=== PATIENT | male | born 1985 | race Caucasian/White ===

== ENCOUNTER 2016-11-08 06:38 | Observation (INO) | payer OTHER ==
[2016-11-08] MEDS ORDERED: SODIUM CHLORIDE 0.9% 1,000 ML IV ONE (06:44)
--- NOTE | 2016-11-08 06:52 | ED ---
Altered Mental Status HPI - General Source: police, EMS Mode of arrival: EMS Limitations: no limitations <Branden Hensley - Last Filed: 11/08/16 07:17> <Austin Broussard - Last Filed: 11/08/16 10:38> - General Stated Complaint: Altered Mental Status - History of Present Illness Initial Comments: This is a 30-year-old male with a history of hypertension presents emergency department for mental status changes. Per EMS he was found by his girlfriend thrashing around in bed and not responding to them. The EMS stated that they were originally called for respiratory arrest however when they got there he was breathing fine however was just having mental status changes. They stated that he was thrashing around and was not aware of his surroundings. He was not communicative. He was just screaming and thrashing. He had been restrained in route. It was not until just before they arrived to the hospital that the patient stop thrashing and was communicating with them. The patient adamantly denies taking any drugs. States he does not drink. He states he is on indomethacin. He denies being sick recently. No fevers or chills. He currently states that the only thing that hurts her as risks for the handcuffs were. No other complaints. (Branden Hensley) - Related Data Allergies Allergy/AdvReac Type Severity Reaction Status Date / Time No Known Allergies Allergy Verified 11/08/16 06:45 Review of Systems ROS Other: All systems not noted in ROS Statement are negative. <Branden Hensley - Last Filed: 11/08/16 07:17> ROS Other: All systems not noted in ROS Statement are negative. <Austin Broussard - Last Filed: 11/08/16 10:38> ROS Statement: Those systems with pertinent positive or pertinent negative responses have been documented in the HPI. Past Medical History Past Medical History: Hypertension History of Any Multi-Drug Resistant Organisms: None Reported Past Surgical History: No Surgical Hx Reported Past Psychological History: No Psychological Hx Reported Smoking Status: Never smoker Past Alcohol Use History: None Reported Past Drug Use History: None Reported <Branden Hensley - Last Filed: 11/08/16 07:17> General Exam Limitations: no limitations <Branden Hensley - Last Filed: 11/08/16 07:17> <Austin Broussard - Last Filed: 11/08/16 10:38> - General Exam Comments Initial Comments: Constitutional: Awake alert Appears comfortable Head: Normocephalic atraumatic Eyes: no conjunctival injection No scleral icterus EOMI Neck: No JVD Supple Heart: Regular rate rhythm normal S1-S2 no murmurs Lungs: Clear to auscultation bilaterally No wheezing No rales Abdomen: Soft nondistended nontender Extremities: Non edematous DP pulses intact Radial pulses intact Neuro: A&Ox3 nerves II through XII are grossly intact, 5 out of 5 strength in upper and lower Chevys bilaterally, no ataxia with finger-nose and heel to araujo testing Psych: Appropriate mood and affect (Branden Hensley) Course <Branden Hensley - Last Filed: 11/08/16 07:17> <Austin Broussard - Last Filed: 11/08/16 10:38> Vital Signs 11/08/16 11/08/16 06:41 09:03 Temperature 94.5 F L 97.9 F Pulse Rate 93 75 Respiratory 22 18 Rate Blood Pressure 163/93 126/70 O2 Sat by Pulse 100 96 Oximetry - Reevaluation(s) Reevaluation #1: 11/08/16 06:52 EKG showing normal sinus rhythm with a rate of 82. No ST segment changes or T- wave inversions. QTC is 422. Other intervals are normal. No ectopy. (Branden Hensley) Reevaluation #2: 11/08/16 07:12 Patient's care transitioned to Dr. Broussard (Branden Hensley) Medical Decision Making <Branden Hensley - Last Filed: 11/08/16 07:17> - Lab Data Result diagrams: 11/08/16 06:50 11/08/16 06:50 <Austin Broussard - Last Filed: 11/08/16 10:38> - Medical Decision Making Reevaluation patient several occasions recently he'll he was awake alert and oriented. Did discuss findings with him and his family as well as Dr. Veloz the patient will be admitted with neurological consultation for new-onset seizure (Austin Broussard) - Lab Data Lab Results 11/08/16 11/08/16 11/08/16 Range/Units 06:50 06:50 06:50 WBC 6.3 (3.8-10.6) k/uL RBC 5.48 (4.30-5.90) m/uL Hgb 15.2 (13.0-17.5) gm/dL Hct 44.3 (39.0-53.0) % MCV 80.8 (80.0-100.0) fL MCH 27.7 (25.0-35.0) pg MCHC 34.3 (31.0-37.0) g/dL RDW 13.7 (11.5-15.5) % Plt Count 205 (150-450) k/uL Neutrophils % 41 % Lymphocytes % 43 % Monocytes % 7 % Eosinophils % 4 % Basophils % 1 % Neutrophils # 2.6 (1.3-7.7) k/uL Lymphocytes # 2.8 (1.0-4.8) k/uL Monocytes # 0.5 (0-1.0) k/uL Eosinophils # 0.3 (0-0.7) k/uL Basophils # 0.1 (0-0.2) k/uL Sodium 142 (137-145) mmol/L Potassium 4.1 (3.5-5.1) mmol/L Chloride 107 (98-107) mmol/L Carbon Dioxide 18 L (22-30) mmol/L Anion Gap 17 mmol/L BUN 15 (9-20) mg/dL Creatinine 1.10 (0.66-1.25) mg/dL Est GFR (MDRD) Af Amer >60 (>60 ml/min/1.73 sqM) Est GFR (MDRD) Non-Af >60 (>60 ml/min/1.73 sqM) Glucose 187 H (74-99) mg/dL Plasma Lactic Acid Sanjay (0.7-2.0) mmol/L Calcium 9.3 (8.4-10.2) mg/dL Magnesium 2.1 (1.6-2.3) mg/dL Total Bilirubin 1.9 H (0.2-1.3) mg/dL AST 24 (17-59) U/L ALT 46 (21-72) U/L Alkaline Phosphatase 66 (38-126) U/L CK-MB (CK-2) 2.3 (0.0-2.4) ng/mL Total Protein 7.4 (6.3-8.2) g/dL Albumin 4.5 (3.5-5.0) g/dL Salicylates <1.0 mg/dL Acetaminophen <10.0 ug/mL Serum Alcohol <10 mg/dL 11/08/16 Range/Units 06:50 WBC (3.8-10.6) k/uL RBC (4.30-5.90) m/uL Hgb (13.0-17.5) gm/dL Hct (39.0-53.0) % MCV (80.0-100.0) fL MCH (25.0-35.0) pg MCHC (31.0-37.0) g/dL RDW (11.5-15.5) % Plt Count (150-450) k/uL Neutrophils % % Lymphocytes % % Monocytes % % Eosinophils % % Basophils % % Neutrophils # (1.3-7.7) k/uL Lymphocytes # (1.0-4.8) k/uL Monocytes # (0-1.0) k/uL Eosinophils # (0-0.7) k/uL Basophils # (0-0.2) k/uL Sodium (137-145) mmol/L Potassium (3.5-5.1) mmol/L Chloride (98-107) mmol/L Carbon Dioxide (22-30) mmol/L Anion Gap mmol/L BUN (9-20) mg/dL Creatinine (0.66-1.25) mg/dL Est GFR (MDRD) Af Amer (>60 ml/min/1.73 sqM) Est GFR (MDRD) Non-Af (>60 ml/min/1.73 sqM) Glucose (74-99) mg/dL Plasma Lactic Acid Sanjay 5.8 H* (0.7-2.0) mmol/L Calcium (8.4-10.2) mg/dL Magnesium (1.6-2.3) mg/dL Total Bilirubin (0.2-1.3) mg/dL AST (17-59) U/L ALT (21-72) U/L Alkaline Phosphatase (38-126) U/L CK-MB (CK-2) (0.0-2.4) ng/mL Total Protein (6.3-8.2) g/dL Albumin (3.5-5.0) g/dL Salicylates mg/dL Acetaminophen ug/mL Serum Alcohol mg/dL Disposition <Branden Hensley - Last Filed: 11/08/16 07:17> <Austin Broussard - Last Filed: 11/08/16 10:38> Clinical Impression: Seizure disorder Disposition: ADMITTED IP TO THIS HOSP Condition: Stable
[2016-11-08 07:21] LABS: ALT 46 U/L (21-72); AST 24 U/L (17-59); Acetaminophen <10.0 ug/mL; Alcohol <10 mg/dL; Alkaline Phosphatase 66 U/L (38-126); Anion Gap 17 mmol/L; Blood Urea Nitrogen 15 mg/dL (9-20); Calcium 9.3 mg/dL (8.4-10.2); Carbon Dioxide 18 mmol/L (22-30); Chloride 107 mmol/L (98-107); Glucose 187 mg/dL (74-99); Magnesium 2.1 mg/dL (1.6-2.3); Non-African American GFR(MDRD) >60 (>60 ml/min/1.73 sqM); Potassium 4.1 mmol/L (3.5-5.1); Salicylate <1.0 mg/dL; Sodium 142 mmol/L (137-145); Total Bilirubin 1.9 mg/dL (0.2-1.3); Total Protein 7.4 g/dL (6.3-8.2)
[2016-11-08 07:31] LABS: Basophils # (A) 0.1 k/uL (0-0.2); Basophils % (A) 1 %; CH 28.4; CHCM 35.3; Eosinophils # (A) 0.3 k/uL (0-0.7); Eosinophils % (A) 4 %; HCT 44.3 % (39.0-53.0); HGB 15.2 gm/dL (13.0-17.5); Luc # (Auto) 0.21; Luc % (Auto) 3; Lymphocytes # (A) 2.8 k/uL (1.0-4.8); Lymphocytes % (A) 43 %; MCH 27.7 pg (25.0-35.0); MCHC 34.3 g/dL (31.0-37.0); MCV 80.8 fL (80.0-100.0); Mean Platelet Volume 7.8; Monocytes # (A) 0.5 k/uL (0-1.0); Monocytes % (A) 7 %; Neutrophils # (A) 2.6 k/uL (1.3-7.7); Neutrophils % (A) 41 %; RBC 5.48 m/uL (4.30-5.90); RDW 13.7 % (11.5-15.5); WBC 6.3 k/uL (3.8-10.6); WBC (Perox) 6.19
--- NOTE | 2016-11-08 08:20 | CT ---
EXAMINATION TYPE: CT brain wo con DATE OF EXAM: 11/08/2016 7:49 AM COMPARISON: 05/09/2016 HISTORY: 30-year-old male with altered mental status, confusion, possible seizure TECHNIQUE: Examination was done in axial plane without intravenous contrast. Coronal and sagittal reconstructio ns performed. CT DLP: 1121 mGycm Automated exposure control for dose reduction was used. FINDINGS: There is no evidence of acute intracranial hemorrhage, acute ischemic changes, mass, mass-effect, or extra-axial fluid collection. There is no effacement of cerebral sulci or basal subarachnoid cister ns. There is no hydrocephalus. There is no midline shift. Pride-white matter distinction is preserv ed. There is some lobulated mucosal thickening along the posterior right maxillary sinus, partially visua lized, possibly air-fluid level. Mastoid air cells well pneumatized. Visualized orbits and globes are within normal limits. IMPRESSION: No acute intracranial abnormality seen. Possible acute right maxillary sinusitis. Correlate for any f ocal symptoms.
--- NOTE | 2016-11-08 08:21 | XR ---
EXAMINATION TYPE: XR chest 2V DATE OF EXAM: 11/08/2016 8:01 AM COMPARISON: None HISTORY: 30-year-old male altered mental status, confusion, possible seizure, pain TECHNIQUE: Frontal and lateral views FINDINGS: The cardiomediastinal silhouette, aorta, and pulmonary vasculature are within normal limits. Lungs an d pleural spaces are clear. IMPRESSION: No acute cardiopulmonary process.
[2016-11-08] MEDS ORDERED: SODIUM CHLORIDE 0.9% 500 ML IV ONE (08:53)
[2016-11-08] MEDS ORDERED: SODIUM CHLORIDE 0.9% 2,000 ML IV ONE (08:53)
[2016-11-08] MEDS ORDERED: NALOXONE 0.4 MG/ML 1 ML VIAL IV PRN (10:39)
[2016-11-08] MEDS: SODIUM CHLORIDE 0.9% 1,000 ML IV SCH ×2 (12:23→20:07)
[2016-11-08 12:46] VITALS: RESP 16
[2016-11-08 13:34] LABS: Appearance,Urine Clear (Clear); Bilirubin,Urine Negative (Negative); Glucose,Urine (UA) Negative (Negative); Ketones,Urine Negative (Negative); Leukocyte Esterase,Urine Negative (Negative); Nitrite,Urine Negative (Negative); Protein,Urine Negative (Negative); Specific Gravity,Urine 1.004 (1.001-1.035); UA Billing (MACRO vs. MICRO) CHEM; Urobilinogen,Urine <2.0 mg/dL (<2.0)
[2016-11-08 17:26] LABS: Glucose,Whole Blood 96 mg/dL (75-99)
[2016-11-08] MEDS: ACETAMINOPHEN TAB 500 MG TAB PO PRN (20:06)
[2016-11-08] MEDS ORDERED: LISINOPRIL 10 MG TAB PO SCH (21:00)
[2016-11-08] MEDS: levETIRAcetam 500 MG TAB PO SCH (22:31)
[2016-11-09] MEDS: levETIRAcetam 500 MG TAB PO SCH (07:37)
[2016-11-09] MEDS: SODIUM CHLORIDE 0.9% 1,000 ML IV SCH ×2 (07:38→12:03)
[2016-11-09] MEDS: ACETAMINOPHEN TAB 500 MG TAB PO PRN (07:54)
[2016-11-09 08:05] VITALS: BP 121/77; PULSE 64; TEMP 97.5
--- NOTE | 2016-11-09 08:30 | P.HPIM ---
History of Present Illness H&P Date: 11/08/16 (Patient evaluated at 16:00) Chief Complaint: Altered mental status Patient is a 30-year-old male, patient of Dr. Heart in the outpatient setting medical history significant for GERD, hypertension, possible obstructive sleep apnea, and previous syncopal episode in the past. Patient presented to the emergency department by EMS after he was found in bed by his girlfriend thrashing around and not responding. When EMS arrived to the patient 's residence, he was thrashing around and being noncommunicative. No history of recent illness, fevers, chills, nausea, vomiting, shortness of breath, chest pain, abdominal pain. No history of diarrhea or constipation. Patient's only medication is lisinopril and omeprazole seen. No history of drugs or alcohol abuse. Vitals on arrival temperature 94.5, heart rate 93, respiratory rate 22, blood pressure 163/93, oxygen saturation 100% on room air. Admission labs WBC 6.3, hemoglobin 15.2, carbon dioxide 18, glucose 187, plasma lactic acid venous 5.8, total bilirubin 1.9. Urine and drug screen negative. CAT scan of the brain in the emergency department showed no acute intracranial abnormality; possible acute right maxillary sinusitis. Chest x-ray with no evidence of acute cardiopulmonary process. In the emergency department, patient was given 3500 mL of normal saline and admitted to the medical floor with neurology consult. Upon examination, patient states he doesn't remember anything until waking up in the emergency department with 7 or 8 people standing around him. Patient complains of slight nasal congestion and slightly difficulty breathing through his nose as he states it was broken in the past. Patient has no other complaints. Past Medical History Past Medical History: GERD/Reflux, Hypertension, Syncope Additional Past Medical History / Comment(s): Pt being worked up for YOLANDA, pt states about 2000 he was admitted to [facility] in [place] and was told he may have had a IL or a seizure, he had had a syncopal event and pt states since this time period his memory has been affected-forgetful at times. History of Any Multi-Drug Resistant Organisms: None Reported Past Surgical History: No Surgical Hx Reported Additional Past Anesthesia/Blood Transfusion Reaction / Comment(s): Pt has never had anesthesia. Past Psychological History: No Psychological Hx Reported Additional Psychological History / Comment(s): Pt resides with his fiancee. He is independent. Smoking Status: Never smoker Past Alcohol Use History: None Reported Past Drug Use History: None Reported - Past Family History Mother Family Medical History: Coronary Artery Disease (CAD) Additional Family Medical History / Comment(s): Mother has heart problems. Maternal grandmother had a IL at the age of 52 yrs and had a heart transplant. Father Additional Family Medical History / Comment(s): Father is obese. Medications and Allergies Home Medications Medication Instructions Recorded Confirmed Type Calcium Carbonate [Tums] 1,000 mg PO Q2H PRN 11/08/16 11/08/16 History Indomethacin [Indocin] 50 mg PO TID 11/08/16 11/08/16 History Lisinopril [Zestril] 10 mg PO HS 11/08/16 11/08/16 History Omeprazole 20 mg PO DAILY PRN 11/08/16 11/08/16 History Allergies Allergy/AdvReac Type Severity Reaction Status Date / Time No Known Allergies Allergy Verified 11/08/16 06:45 Physical Exam Vitals: Vital Signs Temp Pulse Pulse Resp BP BP Pulse Ox 11/09/16 07:00 97.5 F L 64 16 121/77 97 11/08/16 23:00 97.6 F 73 16 134/79 97 11/08/16 15:40 16 11/08/16 15:00 97.8 F 83 16 136/71 98 11/08/16 12:41 98.8 F 81 16 145/64 97 11/08/16 10:46 82 18 136/82 98 Intake and Output 11/08/16 11/09/16 11/09/16 22:59 06:59 14:59 Intake Total 1000 1200 Balance 1000 1200 Intake: IV 1000 1200 Sodium Chloride 0.9% 1, 1000 1200 000 ml @ 125 mls/hr IV . Q8H ALHAJI Rx#:[id number] Other: # Voids 3 GENERAL: Pt awake and alert, well-appearing, well-nourished, and in no acute distress. HEAD: Atraumatic, normocephalic. EYES: Pupils equal, round, and reactive to light, extraocular movements intact, sclera anicteric, conjunctiva are normal. ENT: Oropharynx clear without exudates. Moist mucous membranes. Tongue smooth, pink, no lesions, protrudes in midline. NECK:Normal range of motion, supple without lymphadenopathy or JVD. LUNGS: Breath sounds clear to auscultation bilaterally. No wheezes, rales, or rhonchi. HEART: Heart S1, S2, no S3 or S4. Regular rate and rhythm. No murmurs, rubs or gallops. ABDOMEN: Soft, obese, nontender, nondistended, normoactive bowel sounds. No guarding, no rebound. No masses or organomegaly appreciated. EXTREMITIES: 2+ peripheral pulses. No edema. No calf tenderness. NEUROLOGICAL: Pt oriented x 3. Cranial nerves II through XII grossly intact. Strength and sensation grossly intact. PSYCH: Normal mood, normal affect. SKIN: Warm, dry, intact. Normal turgor. No rashes or lesions. Results CBC & Chem 7: 11/08/16 06:50 11/09/16 07:34 Chest x-ray: report reviewed CT Scan - head: report reviewed Thrombosis Risk Factor Assmnt - DVT/VTE Prophylaxis DVT/VTE Prophylaxis: Low risk, early ambulation encouraged - Choose All That Apply Any of the Below Risk Factors Present?: Yes Each Factor Represents 1 point: Obesity (BMI >25) Other Risk Factors: No Other congenital or acquired thrombophilia - If yes, enter type in comment: No Thrombosis Risk Factor Assessment Total Risk Factor Score: 1 Thrombosis Risk Factor Assessment Level: Low Risk Assessment and Plan Plan: Impression and plan: 1. Acute altered mental status suspect secondary to new onset seizure. Neurology consult in place, recommendations pending. Maintain seizure precautions and fall precautions. Continue neurological assessments per protocol. 2. Elevated plasma lactic acid venous, present on admission, resolved. 3. Increased random blood sugar, present on admission. Will check hemoglobin A1c. 4. History of GERD. Continue Pepcid. 5. Hypertension. Continue lisinopril. 6. Suspected obstructive sleep apnea, patient is currently being worked up in the outpatient setting. 7. Previous history of syncope. 8. GI prophylaxis. Continue Pepcid. 9. DVT prophylaxis. Encourage early ambulation. The above impression and plan have been discussed and directed by Dr. Gottlieb. Babak KAPOOR acting as scribe for Dr. Gottlieb.
[2016-11-09 09:37] LABS: Hemoglobin A1C 4.8 % (4.2-6.1)
--- NOTE | 2016-11-09 09:44 | CONS ---
DATE OF CONSULTATION: 11/08/2016 CHIEF COMPLAINT: New onset seizure. HISTORY OF PRESENT ILLNESS: The patient is a pleasant 30-year-old male who is being evaluated today on 11/08/16 by the neurology service per the request of Dr. Gottlieb for seizures. The patient has no previous history of seizures and was brought into [facility] Emergency Room by EMS after he had quite a prolonged episode of generalized tonic-clonic seizure at approximately 6 a.m. this morning. The patient's significant other noticed that he was flailing his arms with his head turned to the left side. She did call EMS and the patient continued to seize for the next 30 minutes approximately. The patient does not recall the event and the next thing he remembers is being in the emergency room. He is complaining of joint tenderness, muscle soreness, and pain in his tongue. The patient did lacerate his tongue during the seizure. He did not have any sphincter incontinence. The patient denies having any previous history of seizures. He is being worked up for sleep disorder and he was actually scheduled for a polysomnography test this evening but this has been rescheduled. At the time of my evaluation, he is lying in his bed and appears to be in no acute distress. He has not had any recurrence at this time of any seizure-like activities. PAST MEDICAL HISTORY: Hypertension, gastroesophageal reflux disease, possible sleep disorder. SOCIAL HISTORY: He denied any tobacco, alcohol or drug use. PAST SURGICAL HISTORY: None. FAMILY HISTORY: Negative for any seizures and overall noncontributory. HOME MEDICATIONS: Reviewed in the chart. ALLERGIES: No known drug allergies. REVIEW OF SYSTEMS: CONSTITUTIONAL: As mentioned above. EYES: Negative. ENT: Negative. CARDIOVASCULAR: Negative. RESPIRATORY: Negative. NEUROLOGICAL: As mentioned above. GASTROINTESTINAL: Positive for occasional heartburn. GENITOURINARY: Negative. PSYCHIATRIC: Negative. ENDOCRINE: Negative. DERMATOLOGICAL: Negative. MUSCULOSKELETAL: As mentioned above. INVESTIGATION: A CT scan of the brain was done, which showed no acute intracranial abnormalities. There was evidence of right maxillary sinusitis. His chest x-ray was normal. His CBC, urinalysis and urine drug screens were normal. His comprehensive metabolic profile showed hyperglycemia at 187 and elevated bilirubin at 1.9. His lactic acid level was elevated at 5.8. PHYSICAL EXAM: Vital signs show a temperature of 97.8, pulse 83, respirations 16, blood pressure 136/71. GENERAL APPEARANCE: The patient is a well-developed male who appears to be in no acute distress. HEENT: Normocephalic, atraumatic, no facial asymmetry is seen. Extraocular muscles are intact. Laceration on the tongue is seen on the right side. Neck is supple with no masses felt. CARDIOVASCULAR: Regular rate and rhythm. ABDOMEN: Nontender, nondistended. Extremities showed no edema or clubbing. NEUROLOGICAL EXAM: The patient is alert, aware, and oriented x3. Speech and language are normal. Strength is full in all 4 extremities. Sensory exam was normal to light touch in all 4 extremities. No tremors or seizure-like activity is seen. No facial asymmetry is noticed on cranial nerve testing. IMPRESSION: 1. Prolonged generalized tonic-clonic seizure, new onset. 2. Hypertension. 3. Gastroesophageal reflux disease. 4. Sleep disorder. RECOMMENDATIONS: The patient did have a prolonged generalized tonic-clonic seizure, which was witnessed by the family and by EMS. The seizure lasted approximately 30 minutes which is quite concerning. Due to the length of the seizure, I do recommend starting antiepileptic medications. I will start him on Keppra 500 mg b.i.d. Possible side effects were discussed with the patient. An EEG has been ordered. Continue seizure precautions and neuro checks. The patient was told that he is not to drive or operate any heavy machinery for a period of 6 months. As for his possible sleep disorder, his polysomnography test has been rescheduled. The patient will be seen in the outpatient clinic after his discharge. Continue the rest of your current workup and management. I will continue to follow with you. Further recommendations to follow. Thank you, Dr. Gottlieb for allowing me to participate in the care of your patient. If you have any questions, please feel free to contact me.
--- NOTE | 2016-11-09 14:27 | P.DS ---
Providers Date of admission: 11/08/16 10:39 Expected date of discharge: 11/09/16 Attending physician: Wiliam Gottlieb Consults: Dr. Ge, neurology service Primary care physician: [facility] Course: Patient is a 30-year-old male, patient of Dr. Heart in the outpatient setting medical history significant for GERD, hypertension, possible obstructive sleep apnea with testing pending, and previous syncopal episode in the past. Patient presented to the emergency department by EMS after he he had a prolonged episode of generalized tonic-clonic seizure lasting approximately 30 minutes. No prior history of seizure activity. Urine and drug screen negative. CAT scan of the brain in the emergency department showed no acute intracranial abnormality; possible acute right maxillary sinusitis. Patient was evaluated by Dr. Ge from neurology service and was started on antiepileptic medication in the form of Keppra 500 mg by mouth twice a day. Patient also had an EEG during his hospitalization, results pending. Patient had no further seizures during his hospital stay and was deemed stable for discharge to home with follow-up in the outpatient setting. Patient instructed not to drive or operate any heavy machinery for 6 months. Discharge diagnoses: 1. Prolonged generalized tonic-clonic seizure, new onset. 2. GERD. 3. Hypertension. 4. Suspected obstructive sleep apnea. 5. Previous history of syncope. The above impression and plan have been discussed and directed by Dr. Gottlieb. Babak KAPOOR acting as scribe for Dr. Gottlieb. Pertinent Studies: Brain CT; chest x-ray, EEG Patient Condition at Discharge: Stable Plan - Discharge Summary New Discharge Prescriptions: Omeprazole 20 mg PO DAILY PRN #30 capsule.[address] COELHO Reason: Heartburn levETIRAcetam [Keppra] 500 mg PO Q12HR #60 tab Discharge Medication List Calcium Carbonate [Tums] 1,000 mg PO Q2H PRN 11/08/16 [History] Indomethacin [Indocin] 50 mg PO TID 11/08/16 [History] Lisinopril [Zestril] 10 mg PO HS 11/08/16 [History] Omeprazole 20 mg PO DAILY PRN #30 capsule. 11/09/16 [Rx] levETIRAcetam [Keppra] 500 mg PO Q12HR #60 tab 11/09/16 [Rx] Follow up Appointment(s)/Referral(s): Rocky Ge MD [STAFF PHYSICIAN] - 1 Week Wiliam Gottlieb Jr, DO [Primary Care Provider] - 1 Week Patient Instructions/Handouts: New-Onset Seizure in Adults (DC) Activity/Diet/Wound Care/Special Instructions: Do not drive or operate any heavy machinery for a period of 6 months. Follow- up with polysomnography test as previous scheduled. Discharge Disposition: HOME SELF-CARE Pending Studies Pending Results: EEG results
--- NOTE | 2016-11-09 22:14 | EEG ---
DATE OF SERVICE: 11/09/2016 REASON FOR TESTING: Seizure. CURRENT ANTIEPILEPTIC MEDICATIONS: Keppra. DESCRIPTION OF THE PROCEDURE: This EEG was performed using a 21-channel digital electroencephalograph, following international 10-20 system. DESCRIPTION OF THE RECORDING: From the beginning of the tracing, and with the patient's eyes closed, the background rhythm was mostly consisting of 9 Hz alpha frequency in the posterior occipital leads. No obvious asymmetry is seen. Frequent movement artifacts and lead artifacts are noticed. Photic stimulation was performed with a good driving response seen. No pathological waves were elicited. Hyperventilation was performed with no build-up of amplitude seen. Again, no pathological waves were elicited. Later in the tracing, the patient does reach stage II of sleep and occasional sleep spindles and K complexes are seen. No epileptiform discharges were noticed. His EKG lead showed a regular rate and rhythm. INTERPRETATION: This asleep and awake EEG can be considered within normal limits. There was no asymmetry seen. No epileptiform discharges were noticed. The absence of epileptiform discharges does not rule out the diagnosis of epilepsy; therefore clinical correlation is recommended.
== END 2016-11-09 15:10 | disposition home or self-care (01) ==
LOC: EC 06:38 → 3OBS 10:39 → 5MS5E 12:57
PROVIDERS: ADMIT Family Medicine; ATTEND Family Medicine
DX: G40.409 Other generalized epilepsy and epileptic syndromes, not intractable, without status epilepticus (principal); K21.9 Gastro-esophageal reflux disease without esophagitis; I10 Essential (primary) hypertension; G47.9 Sleep disorder, unspecified; S01.512A Laceration without foreign body of oral cavity, initial encounter; Z79.899 Other long term (current) drug therapy; X58.XXXA Exposure to other specified factors, initial encounter; Y93.89 Activity, other specified; Y92.013 Bedroom of single-family (private) house as the place of occurrence of the external cause; Z82.49 Family history of ischemic heart disease and other diseases of the circulatory system
CPT/HCPCS: 36415; 95819; 93005; 84145; 80053; 83036; 82553; 83605; 83735; 82947; 85025; 81003; 80306; 83520 ×2; 80320; 71020; 70450; 99285; 96360; 96361 ×4; G0378 ×3

== ENCOUNTER 2017-02-22 21:47 | Emergency (ER) | payer OTHER ==
[2017-02-22 22:01] VITALS: RESP 18
[2017-02-22] MEDS ORDERED: TOPIRAMATE 25 MG TAB PO SCH (22:30)
[2017-02-22 23:07] LABS: Anion Gap 13 mmol/L; Blood Urea Nitrogen 19 mg/dL (9-20); Calcium 9.4 mg/dL (8.4-10.2); Carbon Dioxide 20 mmol/L (22-30); Chloride 110 mmol/L (98-107); Glucose 118 mg/dL (74-99); Non-African American GFR(MDRD) >60 (>60 ml/min/1.73 sqM); Sodium 143 mmol/L (137-145)
--- NOTE | 2017-02-22 23:44 | ED ---
Seizure HPI - General Chief Complaint: Seizure Stated Complaint: Seizure Time Seen by Provider: 02/22/17 22:15 Source: family Mode of arrival: wheelchair Limitations: no limitations - History of Present Illness Initial Comments: Patient complains of seizure disorder. He states that he normally takes his seizure medication in the evening, however recently he has been having seizures in the evening before taking his medication. He has no fever, chills, chest pain or shortness of breath. He has no nausea or vomiting. He has no weakness or trouble walking. He has not changed his medication. He has no neck pain or stiffness. He has no fever or chills. He has no sick contacts. - Related Data Home Medications Medication Instructions Recorded Confirmed Calcium Carbonate [Tums] 1,000 mg PO Q2H PRN 11/08/16 02/22/17 Lisinopril [Zestril] 10 mg PO HS 11/08/16 02/22/17 Acetaminophen [Tylenol] 325 mg PO Q4H PRN 02/22/17 02/22/17 Omeprazole [PriLOSEC] 10 mg PO DAILY 02/22/17 02/22/17 Topiramate [Topamax] 100 mg PO DAILY 02/22/17 02/22/17 Allergies Allergy/AdvReac Type Severity Reaction Status Date / Time No Known Allergies Allergy Verified 02/22/17 22:51 Review of Systems ROS Statement: Those systems with pertinent positive or pertinent negative responses have been documented in the HPI. ROS Other: All systems not noted in ROS Statement are negative. Past Medical History Past Medical History: GERD/Reflux, Hypertension, Syncope Additional Past Medical History / Comment(s): Pt being worked up for YOLANDA, pt states about 2000 he was admitted to [facility] in [place] and was told he may have had a [place] or a seizure, he had had a syncopal event and pt states since this time period his memory has been affected-forgetful at times. History of Any Multi-Drug Resistant Organisms: None Reported Past Surgical History: No Surgical Hx Reported Additional Past Anesthesia/Blood Transfusion Reaction / Comment(s): Pt has never had anesthesia. Past Psychological History: No Psychological Hx Reported Additional Psychological History / Comment(s): Pt resides with his fiancee. He is independent. Smoking Status: Never smoker Past Alcohol Use History: None Reported Past Drug Use History: None Reported - Past Family History Mother Family Medical History: Coronary Artery Disease (CAD) Additional Family Medical History / Comment(s): Mother has heart problems. Maternal grandmother had a [place] at the age of 52 yrs and had a heart transplant. Father Additional Family Medical History / Comment(s): Father is obese. General Exam Limitations: no limitations General appearance: alert, in no apparent distress Head exam: Present: atraumatic, normocephalic, normal inspection Eye exam: Present: normal appearance, PERRL, EOMI. Absent: scleral icterus, conjunctival injection, periorbital swelling ENT exam: Present: normal exam, mucous membranes moist Neck exam: Present: normal inspection. Absent: tenderness, meningismus, lymphadenopathy Respiratory exam: Present: normal lung sounds bilaterally. Absent: respiratory distress, wheezes, rales, rhonchi, stridor Cardiovascular Exam: Present: regular rate, normal rhythm, normal heart sounds. Absent: systolic murmur, diastolic murmur, rubs, gallop, clicks GI/Abdominal exam: Present: soft, normal bowel sounds. Absent: distended, tenderness, guarding, rebound, rigid Extremities exam: Present: normal inspection, full ROM, normal capillary refill. Absent: tenderness, pedal edema, joint swelling, calf tenderness Back exam: Present: normal inspection Neurological exam: Present: alert, oriented X3, CN II-XII intact Psychiatric exam: Present: normal affect, normal mood Skin exam: Present: warm, dry, intact, normal color. Absent: rash Course Vital Signs 02/22/17 21:58 Temperature 96.8 F L Pulse Rate 71 Respiratory 18 Rate Blood Pressure 127/75 O2 Sat by Pulse 97 Oximetry Medical Decision Making - Medical Decision Making Patient complains of seizures. His electrolytes are within acceptable limits. Patient takes his seizure medication in the evening, and based on this fact it appears that his medication level is simply dropping too low before he is able to take the next dose. Therefore he will likely need an increase in his seizure medication. I discussed this with the patient. I gave him an extra doses medication here in the emergency department. Patient has remained seizure -free. He is stable for discharge at this time. - Lab Data Result diagrams: 02/22/17 22:45 Lab Results 02/22/17 Range/Units 22:45 Sodium 143 (137-145) mmol/L Potassium 4.0 (3.5-5.1) mmol/L Chloride 110 H (98-107) mmol/L Carbon Dioxide 20 L (22-30) mmol/L Anion Gap 13 mmol/L BUN 19 (9-20) mg/dL Creatinine 1.00 (0.66-1.25) mg/dL Est GFR (MDRD) Af Amer >60 (>60 ml/min/1.73 sqM) Est GFR (MDRD) Non-Af >60 (>60 ml/min/1.73 sqM) Glucose 118 H (74-99) mg/dL Calcium 9.4 (8.4-10.2) mg/dL Disposition Clinical Impression: Generalized seizure Disposition: HOME SELF-CARE Condition: Good Instructions: Recurrent Seizures in Adults (ED) Time of Disposition: 23:44
[2017-02-23 00:04] VITALS: BP 128/59; PULSE 67; TEMP 98
== END 2017-02-23 00:04 | disposition home or self-care (01) ==
LOC: EC 21:47
DX: G40.109 Localization-related (focal) (partial) symptomatic epilepsy and epileptic syndromes with simple partial seizures, not intractable, without status epilepticus (principal); I10 Essential (primary) hypertension; K21.9 Gastro-esophageal reflux disease without esophagitis; Z79.899 Other long term (current) drug therapy
CPT/HCPCS: 36415; 80048; 99284

== ENCOUNTER → 2019-06-04 | Outpatient (CLI) | payer BC ==
[2019-06-04 14:24] LABS: Anisocytosis Slight; Basophils # (A) 0.1 k/uL (0-0.2); Basophils % (A) 1 %; Eosinophils # (A) 0.3 k/uL (0-0.7); Eosinophils % (A) 5 %; HCT 45.7 % (39.0-53.0); HGB 15.3 gm/dL (13.0-17.5); Lymphocytes # (A) 1.9 k/uL (1.0-4.8); Lymphocytes % (A) 30 %; MCHC 33.6 g/dL (31.0-37.0); MCV 83.5 fL (80.0-100.0); Mean Platelet Volume 7.4; Monocytes # (A) 0.4 k/uL (0-1.0); Monocytes % (A) 6 %; Neutrophils # (A) 3.4 k/uL (1.3-7.7); Neutrophils % (A) 54 %; Platelet Count 182 k/uL (150-450); RBC 5.47 m/uL (4.30-5.90); RDW 16.7 % (11.5-15.5); WBC 6.3 k/uL (3.8-10.6)
[2019-06-04 20:19] LABS: African American GFR (CKD) 103.1 (60.0-200.0); Albumin 4.7 g/dL (3.80-4.90); Albumin/Globulin Ratio 2.35 (1.60-3.17); Anion Gap 9.1 mmol/L (4.00-12.00); BUN/Creat Ratio 15.45 Ratio (12.00-20.00); Calcium 9.5 mg/dL (8.7-10.3); Carbon Dioxide 23.9 mmol/L (21.6-31.8); Chol/HDL Ratio 5.23; LDL Cholesterol,Calculated 136.6 mg/dL (0.0-131.0); Potassium 4.5 mmol/L (3.5-5.5); Total Bilirubin 1.5 mg/dL (0.2-1.2); Total Protein 6.7 g/dL (6.2-8.2); VLDL Calculation 49.4 mg/dL (5.00-40.00)
[2019-06-04 20:27] LABS: T4, Free (Free Thyroxine) 1.1 ng/dL (0.80-1.80)
== END | disposition home or self-care (01) ==
LOC: LABWHC1 13:31
PROVIDERS: ATTEND Family Medicine
DX: Z00.00 Encounter for general adult medical examination without abnormal findings (principal); I10 Essential (primary) hypertension; E78.2 Mixed hyperlipidemia; K21.9 Gastro-esophageal reflux disease without esophagitis
CPT/HCPCS: 36415; 80053; 80061; 84439; 84443; 85025; 86677

== ENCOUNTER 2021-10-01 06:43 | Emergency (ER) | payer BC, OTHER ==
[2021-10-01 07:02] VITALS: BP 134/85; PULSE 77; RESP 18; TEMP 98.5
[2021-10-01] MEDS ORDERED: KETOROLAC 15 MG/ML 1 ML VIAL IM STA (08:11)
--- NOTE | 2021-10-01 08:14 | XR ---
EXAMINATION TYPE: XR knee complete RT DATE OF EXAM: 10/01/2021 CLINICAL HISTORY: Twisting injury with pain TECHNIQUE: Three views of the right knee are obtained. COMPARISON: None. FINDINGS: There is no acute fracture/dislocation evident in right knee. The tri-compartment joint s paces appear within normal limits. The overlying soft tissue appears unremarkable. A fabella is inci dentally noted. IMPRESSION: There is no acute fracture or dislocation in the right knee.
--- NOTE | 2021-10-01 08:19 | ED ---
General Adult HPI - General Chief complaint: Extremity Problem,Nontraumatic Stated complaint: Right leg pain Time Seen by Provider: 10/01/21 07:47 Source: patient, RN notes reviewed, old records reviewed Mode of arrival: ambulatory Limitations: no limitations - History of Present Illness Initial comments: 35 with right knee pain. Patient states that he did not have specific injury but may have had minor twist with a resulting pop which occurred yesterday. He's had no fever or chills. He has had pain with standing and with range of motion. Denies any other injury. - Related Data Home Medications Medication Instructions Recorded Confirmed Calcium Carbonate [Tums] 1,000 mg PO Q2H PRN 11/08/16 02/22/17 lisinopriL [Zestril] 10 mg PO HS 11/08/16 02/22/17 Acetaminophen [Tylenol] 325 mg PO Q4H PRN 02/22/17 02/22/17 Omeprazole [PriLOSEC] 10 mg PO DAILY 02/22/17 02/22/17 Topiramate [Topamax] 100 mg PO DAILY 02/22/17 02/22/17 Previous Rx's Medication Instructions Recorded Ibuprofen [Motrin] 600 mg PO Q8HR PRN #24 tab 10/01/21 Allergies Allergy/AdvReac Type Severity Reaction Status Date / Time No Known Allergies Allergy Verified 10/01/21 07:02 Review of Systems ROS Statement: Those systems with pertinent positive or pertinent negative responses have been documented in the HPI. ROS Other: All systems not noted in ROS Statement are negative. Past Medical History Past Medical History: GERD/Reflux, Hypertension, Syncope Additional Past Medical History / Comment(s): Pt being worked up for YOLANDA, pt states about 2000 he was admitted to [facility] in [place] and was told he may have had a [place] or a seizure, he had had a syncopal event and pt states since this time period his memory has been affected-forgetful at times. History of Any Multi-Drug Resistant Organisms: None Reported Past Surgical History: No Surgical Hx Reported Additional Past Anesthesia/Blood Transfusion Reaction / Comment(s): Pt has never had anesthesia. Past Psychological History: No Psychological Hx Reported Smoking Status: Never smoker Past Alcohol Use History: None Reported Past Drug Use History: None Reported - Past Family History Mother Family Medical History: Coronary Artery Disease (CAD) Additional Family Medical History / Comment(s): Mother has heart problems. Maternal grandmother had a PA at the age of 52 yrs and had a heart transplant. Father Additional Family Medical History / Comment(s): Father is obese. General Exam Limitations: no limitations Head exam: Present: atraumatic, normocephalic Eye exam: Present: normal appearance, PERRL ENT exam: Present: normal exam Neck exam: Present: normal inspection. Absent: tenderness, meningismus Respiratory exam: Present: normal lung sounds bilaterally. Absent: respiratory distress, wheezes Cardiovascular Exam: Present: regular rate, normal rhythm GI/Abdominal exam: Present: soft. Absent: distended, tenderness, guarding Extremities exam: Present: tenderness, joint swelling (Joint effusion on the right. Decreased range of motion. No overlying erythema or warmth). Absent: full ROM, calf tenderness Neurological exam: Present: alert, oriented X3, CN II-XII intact. Absent: motor sensory deficit Psychiatric exam: Present: normal affect, normal mood Skin exam: Present: warm, dry, intact. Absent: cyanosis, diaphoretic Course Vital Signs 10/01/21 06:58 Temperature 98.5 F Pulse Rate 77 Respiratory 18 Rate Blood Pressure 134/85 O2 Sat by Pulse 97 Oximetry Medical Decision Making - Medical Decision Making 35-year-old male with likely soft tissue injury to the right knee x-ray performed, negative for fracture or dislocation. Patient placed in a knee immobilizer, given orthopedic follow-up. Disposition Clinical Impression: Knee sprain Disposition: HOME SELF-CARE Condition: Good Instructions (If sedation given, give patient instructions): Knee Sprain (ED) Prescriptions: Ibuprofen [Motrin] 600 mg PO Q8HR PRN #24 tab PRN Reason: Pain Is patient prescribed a controlled substance at d/c from ED?: No Referrals: Augusto Heart MD [Primary Care Provider] - 1-2 days Yecenia Morgan DO [Doctor of Osteopathic Medicine] - 1-2 days Time of Disposition: 08:18
== END 2021-10-01 08:50 | disposition home or self-care (01) ==
LOC: EC 06:43
DX: S83.91XA Sprain of unspecified site of right knee, initial encounter (principal); I10 Essential (primary) hypertension; K21.9 Gastro-esophageal reflux disease without esophagitis; Z79.899 Other long term (current) drug therapy; X50.1XXA Overexertion from prolonged static or awkward postures, initial encounter
CPT/HCPCS: 73562; 96372; 99283; L1830; J1885